=== PATIENT | male | born 1990 | race Caucasian/White ===

== ENCOUNTER → 2017-01-25 | Outpatient (CLI) | payer OTHER ==
--- NOTE | 2017-01-25 02:20 | RAD ---
INDICATION: Redness and pain of leg COMPARISON: None. TECHNIQUE: Grayscale, color and doppler ultrasound images were obtained of the right lower extremity venous vasculature. RIGHT: No thrombus identified in the common femoral vein, femoral vein, popliteal vein or visualized calf veins. IMPRESSION: 1. No thrombus identified in deep venous system of right lower extremity. 2. Borderline enlarged lymph node in right groin measuring up to 1 cm short axis. Could be reactive in nature but follow-up could be obtained to ensure this resolves Electronically signed by: Deyvi Quiroz MD (01/25/2017 2:16 AM) [facility]
== END | disposition home or self-care (01) ==
LOC: US 01:28
PROVIDERS: ATTEND Internal Medicine
DX: M79.604 Pain in right leg (principal)
CPT/HCPCS: 93971